=== PATIENT | female | born 1995 | race Caucasian/White ===

== ENCOUNTER 2017-06-19 06:20 | Emergency (ER) | payer SELFPAY ==
[~2017-06-19] VITALS: Ht 167.6 cm; Wt 56.7 kg
[~2017-06-19 06:20] MED LIST: AGM875T PO; AMOX250S5 PO; HYDR118S PO; HYOS0.1217 SL; MULT-608 PO; ONDA-42 SL; PARO30TA74 PO; tetracaine lollipop PO
--- OUTSIDE RECORDS SUMMARY | 2017-06-19 06:28 | XMS REPORT ---
Author Author OLIMPIA CASTRO Organization eClinicalWorks Address Unknown Phone Unavailable Care Team Providers Care Dairy Machine Operator Farmworker Name Role Phone OLIMPIA CASTRO CP Unavailable Allergies No Known Allergies Problems Problem Type Condition Code Onset Dates Condition Status Problem Depressive disorder, not elsewhere classified F32.9 Active Problem Generalized anxiety disorder F41.1 Active Problem Cellulitis of head except face L03.811 Active Problem Beta thalassemia minor D56.3 Active Medications Medication Code System Code Instructions Start Date End Date Status Dosage HydrOXYzine HCl [facility] [address]-15 25 MG Orally every 8 hrs May 22, 2016 1 tablet as needed PredniSONE [facility] [address]-54 20 MG Orally once a day May 22, 2016May 3 tablets x 2 days, 2 tabs x 2 day 1 tab x 2 days Results No Known Results Summary Purpose eClinicalWorks Submission
--- OUTSIDE RECORDS SUMMARY | 2017-06-19 06:28 | XMS REPORT ---
Author NATI Rowan [facility] eClinicalWorks Address Unknown Phone Unavailable Care Team Providers Care Weatherization Field Technician Name Role Phone NATI CORTES CP Unavailable Allergies, Adverse Reactions, Alerts Substance Reaction Event Type N.K.D.A. 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 Medications Medication Code System Code Instructions Start Date End Date Status Dosage Depo-Provera [facility] [address]-68 150 MG/ML Intramuscular 1 ml Procedures Procedure Coding System Code Date Office Visit, Est Pt., Level 3 CPT-4 27613 Sep 27, 2015 X-RAY EXAM OF HIPS CPT-4 27772 Sep 27, 2015 Vital Signs Date/Time: Sep 27, 2015 Temperature 98.0 F Weight 135 lbs Height 5'6" in BMI 21.79 Index Blood Pressure Diastolic 62 mmHg Blood Pressure Systolic 116 mmHg Cardiac Monitoring Heart Rate 78 bpm BMIPercentile 50.87 % Wt Percentile 61.49 % Results No Known Results Summary Purpose eClinicalWorks Submission
--- OUTSIDE RECORDS SUMMARY | 2017-06-19 06:28 | XMS REPORT ---
Author Author SONY WILKINSON Organization eClinicalWorks Address Unknown Phone Unavailable Care Team Providers Care Executive Pilot Name Role Phone SONY WILKINSON CP Unavailable Allergies, Adverse Reactions, Alerts Substance Reaction Event Type N.K.D.A. Info Not Available Non Drug Allergy Problems Problem Type Condition Code Onset Dates Condition Status Problem Generalized anxiety disorder F41.1 Active Problem Beta thalassemia minor D56.3 Active Problem Depressive disorder, not elsewhere classified F32.9 Active Assessment Left hip pain M25.552 Active Medications Medication Code System Code Instructions Start Date End Date Status Dosage Ibuprofen [facility] [address]-42 800 MG Orally Three times a day prn February 20, 2016 March 21, 2016 1 tablet Depo-Provera [facility] [address]-94 150 MG/ML Intramuscular 1 ml Sertraline HCl [facility] [address]-78 50 MG Orally Once a day February 15, 2016 0.5 tablet every am X 2 weeks then 1 tablet every am Procedures Procedure Coding System Code Date KENALOG 40 MG/ML (PER 10 MG) CPT-4 J3301 February 20, 2016 THER/PROPH/DIAG INJ, SC/IM CPT-4 53393 February 20, 2016 Office Visit, Est Pt., Level 3 CPT-4 81196 February 20, 2016 Vital Signs Date/Time: February 20, 2016 Temperature 99.0 F Weight 135.4 lbs Height 5'6" in BMI 21.85 Index Blood Pressure Diastolic 56 mmHg Blood Pressure Systolic 102 mmHg Cardiac Monitoring Heart Rate 80 bpm Results No Known Results Summary Purpose eClinicalWorks Submission
--- OUTSIDE RECORDS SUMMARY | 2017-06-19 06:28 | XMS REPORT ---
Author Author YUSRA PURI [facility] eClinicalWorks Address Unknown Phone Unavailable Care Team Providers Care Systems Consultant Name Role Phone YUSRA PURI Unavailable Allergies No Known Allergies Problems Problem Type Condition Code Onset Dates Condition Status Problem Beta thalassemia minor D56.3 Active Assessment Strain of flexor muscle of left hip S76.012A Active Problem Generalized anxiety disorder F41.1 Active Medications No Known Medications Procedures Procedure Coding System Code Date Office Visit, Est Pt., Level 3 CPT-4 88045 Oct 05, 2015 Vital Signs Date/Time: Oct 05, 2015 Blood Pressure Diastolic 62 mmHg Blood Pressure Systolic 112 mmHg Height 5'6" in Results No Known Results Summary Purpose eClinicalWorks Submission
--- OUTSIDE RECORDS SUMMARY | 2017-06-19 06:28 | XMS REPORT ---
Author Author OLIMPIA CASTRO Organization [facility] Address [address] [place] [address] Care Team Providers Care Section Plotter Operator Name Role Phone OLIMPIA CASTRO Unavailable PROBLEMS Type Condition ICD9-CM Code [id number] Code Onset Dates Condition Status SNOMED Code Problem Cellulitis of head except face L03.811 Active 521441407 Problem Depressive disorder, not elsewhere classified F32.9 Active 06099321 Problem Generalized anxiety disorder F41.1 Active 50013832 Problem Beta thalassemia minor D56.3 Active 391418398 ALLERGIES Substance Reaction Event Type Date Status N.K.D.A. Unknown Non Drug Allergy Sep, Unknown SOCIAL HISTORY No smoking Hx information available PLAN OF CARE Activity Details Follow Up prn Reason: VITAL SIGNS Height 5'6" in 2016-10-15 Weight 121.4 lbs 2016-10-15 Temperature 98.7 degrees Fahrenheit 2016-10-15 Heart Rate 76 bpm 2016-10-15 Respiratory Rate 18 2016-10-15 BMI 19.59 kg/m2 2016-10-15 Blood pressure systolic 110 mmHg 2016-10-15 Blood pressure diastolic 76 mmHg 2016-10-15 MEDICATIONS Medication Instructions Dosage Frequency Start Date End Date Duration Status Depo-Provera 150 MG/ML 1 ml Active Azithromycin 250 MG Orally Once a day 2 tablets on the first day, then 1 tablet daily for 4 days 24h Sep, Sep, 5 day(s) Active Depo-Provera 150 MG/ML as directed Aug, Active RESULTS Name Result Date Reference Range STREP A (IN HOUSE) 2016-10-15 STREP A negative Control + Lot # [id number] Exp date may 13 PROCEDURES Procedure Date Ordered Related Diagnosis Body Site STREP A ASSAY W/OPTIC Oct 15, 2016 Office Visit, Est Pt., Level 3 Oct 15, 2016 IMMUNIZATIONS No Known Immunizations
--- OUTSIDE RECORDS SUMMARY | 2017-06-19 06:28 | XMS REPORT ---
Author Author JUSTIN BORREGO Organization eClinicalWorks Address Unknown Phone Unavailable Care Team Providers Care Medical Device Sales Representative Name Role Phone JUSTIN BORREGO Unavailable Allergies, Adverse Reactions, Alerts Substance Reaction Event Type N.K.D.A. Info Not Available Non Drug Allergy Problems Problem Type Condition Code Onset Dates Condition Status Problem Beta thalassemia minor D56.3 Active Assessment Generalized anxiety disorder F41.1 Active Problem Generalized anxiety disorder F41.1 Active Medications Medication Code System Code Instructions Start Date End Date Status Dosage Naprosyn [facility] [address]-40 250 MG Orally Twice a day Oct 06, 2015 Oct 20, 2015 1 tablet Depo-Provera [facility] [address]-59 150 MG/ML Intramuscular 1 ml Effexor XR [facility] [address]-84 75 MG Orally Once a day Oct 10, 2015 1 capsule with food Procedures Procedure Coding System Code Date Psych diagnostic evaluation w/medical services, established patient CPT-4 25362 Oct 10, 2015 Vital Signs Date/Time: Oct 10, 2015 Cardiac Monitoring Heart Rate 72 bpm Weight 132.0 lbs Height 5'6" in BMI 21.30 Index Blood Pressure Diastolic 60 mmHg Blood Pressure Systolic 100 mmHg Results No Known Results Summary Purpose eClinicalWorks Submission
--- OUTSIDE RECORDS SUMMARY | 2017-06-19 06:28 | XMS REPORT ---
Author Author HAILEY BANERJEE [facility] eClinicalWorks Address Unknown Phone Unavailable Care Team Providers Care Roving Inspector Name Role Phone HAILEY BANERJEE CP Unavailable Allergies No Known Allergies Problems Problem Type Condition Code Onset Dates Condition Status Problem Generalized anxiety disorder F41.1 Active Problem Beta thalassemia minor D56.3 Active Problem Depressive disorder, not elsewhere classified F32.9 Active Assessment Encounter for Depo-Provera contraception Z30.42 Active Medications No Known Medications Procedures Procedure Coding System Code Date DEPO PROVERA (150 MG/ML) CPT-4 J1050 February 16, 2016 THER/PROPH/DIAG INJ, SC/IM CPT-4 92298 February 16, 2016 URINE TEST CPT-4 88297 February 16, 2016 Vital Signs Date/Time: February 16, 2016 Cardiac Monitoring Heart Rate 98 bpm Temperature 97.8 F Height 5'6" in Blood Pressure Diastolic 68 mmHg Blood Pressure Systolic 108 mmHg Results No Known Results Summary Purpose eClinicalWorks Submission
--- OUTSIDE RECORDS SUMMARY | 2017-06-19 06:29 | XMS REPORT ---
Author Author HAILEY BANERJEE [facility] eClinicalWorks Address Unknown Phone Unavailable Care Team Providers Care Electronic Heat Seal Operator Name Role Phone HAILEY BANERJEE Unavailable Allergies No Known Allergies Problems Problem Type Condition Code Onset Dates Condition Status Problem Depressive disorder, not elsewhere classified F32.9 Active Problem Generalized anxiety disorder F41.1 Active Problem Cellulitis of head except face L03.811 Active Problem Beta thalassemia minor D56.3 Active Medications No Known Medications Results No Known Results Summary Purpose eClinicalWorks Submission
--- OUTSIDE RECORDS SUMMARY | 2017-06-19 06:29 | XMS REPORT ---
Author Author JUSTIN BORREGO [facility] eClinicalWorks Address Unknown Phone Unavailable Care Team Providers Care Parking Meter Installer Name Role Phone JUSTIN BORREGO Unavailable Allergies, Adverse Reactions, Alerts Substance Reaction Event Type N.K.D.A. Info Not Available Non Drug Allergy Problems Problem Type Condition Code Onset Dates Condition Status Problem Beta thalassemia minor D56.3 Active Assessment Generalized anxiety disorder F41.1 Active Problem Generalized anxiety disorder F41.1 Active Medications Medication Code System Code Instructions Start Date End Date Status Dosage Depo-Provera [facility] [address]-29 150 MG/ML Intramuscular 1 ml Cymbalta [facility] [address]-59 20 MG Orally Once a day Oct 23, 2015 1 capsule Procedures Procedure Coding System Code Date Office Visit, Est Pt., Level 4 CPT-4 62117 Oct 31, 2015 Vital Signs Date/Time: Oct 31, 2015 Cardiac Monitoring Heart Rate 84 bpm Weight 130.9 lbs Height 5'6" in BMI 21.13 Index Blood Pressure Diastolic 58 mmHg Blood Pressure Systolic 95 mmHg Results No Known Results Summary Purpose eClinicalWorks Submission
--- OUTSIDE RECORDS SUMMARY | 2017-06-19 06:29 | XMS REPORT ---
Author Author BRENNAN SMITH [facility] Address [address] [place] [address] Care Team Providers Care Machine Tool Rebuilder Name Role Phone BRENNAN SMITH Unavailable PROBLEMS Type Condition ICD9-CM Code [id number] Code Onset Dates Condition Status SNOMED Code Problem Cellulitis of head except face L03.811 Active 435535627 Problem Depressive disorder, not elsewhere classified F32.9 Active 47237636 Problem Generalized anxiety disorder F41.1 Active 57010960 Problem Beta thalassemia minor D56.3 Active 044157470 ALLERGIES No Known Allergies SOCIAL HISTORY No smoking Hx information available PLAN OF CARE VITAL SIGNS MEDICATIONS Medication Instructions Dosage Frequency Start Date End Date Duration Status Depo-Provera 150 MG/ML as directed Aug, Active RESULTS No Results PROCEDURES Procedure Date Ordered Related Diagnosis Body Site DEPO PROVERA (150 MG/ML) 2016 THER/PROPH/DIAG INJ, SC/IM 2016 IMMUNIZATIONS Vaccine Route Administration Date Status DEPO PROVERA (150 MG/ML) IM Intramuscular 2016 Administered
--- OUTSIDE RECORDS SUMMARY | 2017-06-19 06:29 | XMS REPORT ---
Author Author HAILEY BANERJEE eClinicalWorks Address Unknown Phone Unavailable Care Team Providers Care Emergency Management System Director Name Role Phone HAILEY BANERJEE CP Unavailable Allergies, Adverse Reactions, Alerts Substance Reaction Event Type N.K.D.A. 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 Problem Generalized anxiety disorder F41.1 Active Assessment Thalassemia, unspecified type D56.9 Active Medications Medication Code System Code Instructions Start Date End Date Status Dosage Depo-Provera [facility] [address]-07 150 MG/ML Intramuscular 1 ml Procedures Procedure Coding System Code Date ASSAY OF FREE THYROXINE CPT-4 21524 Sep 07, 2015 MANUAL CELL COUNT, EACH CPT-4 32103 Sep 07, 2015 ASSAY THYROID STIM HORMONE CPT-4 34928 Sep 07, 2015 VENIPUNCT, ROUTINE* CPT-4 95537 Sep 07, 2015 HEMOGLOBIN CHROMOTOGRAPHY CPT-4 28209 Sep 07, 2015 BLOOD SMEAR INTERPRETATION CPT-4 18115 Sep 07, 2015 Office Visit, Est Pt., Level 3 CPT-4 24173 Sep 07, 2015 COMPREHEN METABOLIC PANEL CPT-4 22973 Sep 07, 2015 Vital Signs Date/Time: Sep 07, 2015 Temperature 97.9 F Weight 133.6 lbs Height 5'6" in BMI 21.56 Index Blood Pressure Diastolic 70 mmHg Blood Pressure Systolic 118 mmHg Cardiac Monitoring Heart Rate 80 bpm BMIPercentile 48.09 % Wt Percentile 59.23 % Results Name Result Date Reference Range Unit Abnormality Flag ROUTINE VENIPUNCTURE Summary Purpose eClinicalWorks Submission
--- OUTSIDE RECORDS SUMMARY | 2017-06-19 06:29 | XMS REPORT ---
Author IBETH Chaidez [facility] eClinicalWorks Address Unknown Phone Unavailable Care Team Providers Care Ict Project Manager Name Role Phone IBETH DILL CP Unavailable Allergies No Known Allergies Problems Problem Type Condition Code Onset Dates Condition Status Problem Generalized anxiety disorder F41.1 Active Problem Beta thalassemia minor D56.3 Active Problem Depressive disorder, not elsewhere classified F32.9 Active Assessment Encounter for Depo-Provera contraception Z30.42 Active Medications No Known Medications Procedures Procedure Coding System Code Date DEPO PROVERA (150 MG/ML) CPT-4 J1050 Nov 20, 2015 THER/PROPH/DIAG INJ, SC/IM CPT-4 30542 Nov 20, 2015 URINE TEST CPT-4 50246 Nov 20, 2015 Results Name Result Date Reference Range Unit Abnormality Flag TEST, URINE (IN HOUSE) ----RESULTS neg [id number] ----Lot # [id number] ----Control + [id number] ----Exp date [id number] Summary Purpose eClinicalWorks Submission
--- OUTSIDE RECORDS SUMMARY | 2017-06-19 06:29 | XMS REPORT ---
Author BRENNAN Hampton [facility] eClinicalWorks Address Unknown Phone Unavailable Care Team Providers Care Color Mixer Name Role Phone BRENNAN SMITH CP Unavailable Allergies, Adverse Reactions, Alerts Substance Reaction Event Type N.K.D.A. Info Not Available Non Drug Allergy Problems Problem Type Condition Code Onset Dates Condition Status Problem Depressive disorder, not elsewhere classified F32.9 Active Problem Generalized anxiety disorder F41.1 Active Problem Cellulitis of head except face L03.811 Active Problem Beta thalassemia minor D56.3 Active Assessment Encounter for initial prescription of Nexplanon Z30.017 Active Medications Medication Code System Code Instructions Start Date End Date Status Dosage Depo-Provera [facility] [address]-76 150 MG/ML Intramuscular 2016 as directed Procedures Procedure Coding System Code Date Office Visit, Est Pt., Level 3 CPT-4 27062 Sep 23, 2016 Vital Signs Date/Time: Sep 23, 2016 Cardiac Monitoring Heart Rate 100 bpm Weight 125.6 lbs Height 5'6" in BMI 20.27 Index Blood Pressure Diastolic 68 mmHg Blood Pressure Systolic 112 mmHg Results No Known Results Summary Purpose eClinicalWorks Submission
--- OUTSIDE RECORDS SUMMARY | 2017-06-19 06:29 | XMS REPORT ---
Author Author JUSTIN BORREGO [facility] eClinicalWorks Address Unknown Phone Unavailable Care Team Providers Care Cra Officer Name Role Phone JUSTIN BORREGO Unavailable Allergies No Known Allergies Problems Problem Type Condition Code Onset Dates Condition Status Problem Generalized anxiety disorder F41.1 Active Problem Beta thalassemia minor D56.3 Active Problem Depressive disorder, not elsewhere classified F32.9 Active Medications Medication Code System Code Instructions Start Date End Date Status Dosage Effexor XR [facility] [address]-29 75 MG Orally Once a day Oct 10, 2015 1 capsule with food Results No Known Results Summary Purpose eClinicalWorks Submission
--- OUTSIDE RECORDS SUMMARY | 2017-06-19 06:29 | XMS REPORT ---
Author IBETH Chaidez [facility] eClinicalWorks Address Unknown Phone Unavailable Care Team Providers Care Clinical Systems Analyst Name Role Phone IBETH DILL CP Unavailable Allergies No Known Allergies Problems Problem Type Condition Code Onset Dates Condition Status Assessment Encounter for immunization Z23 Active Medications No Known Medications Procedures Procedure Coding System Code Date SINGLE IMMUNIZATION ADMIN CPT-4 90809 Aug 07, 2015 FLUARIX QUAD (3 & UP)-GSK-2014 CPT-4 11159 Aug 07, 2015 Results No Known Results Immunizations Vaccine Administration Date FLUARIX QUAD (3 & UP)-GSK-2014Aug 07, 2015 Summary Purpose eClinicalWorks Submission
--- OUTSIDE RECORDS SUMMARY | 2017-06-19 06:29 | XMS REPORT ---
Author Author JUSTIN BORREGO Organization eClinicalWorks Address Unknown Phone Unavailable Care Team Providers Care Parachute Mender Name Role Phone JUSTIN BORREGO Unavailable Allergies No Known Allergies Problems Problem Type Condition Code Onset Dates Condition Status Problem Beta thalassemia minor D56.3 Active Problem Generalized anxiety disorder F41.1 Active Medications No Known Medications Results No Known Results Summary Purpose eClinicalWorks Submission
--- OUTSIDE RECORDS SUMMARY | 2017-06-19 06:29 | XMS REPORT ---
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 Unknown Non Drug Allergy Jun, Unknown SOCIAL HISTORY No smoking Hx information available PLAN OF CARE VITAL SIGNS Height 5'6" in 2016-06-28 Weight 132.7 lbs 2016-06-28 Heart Rate 84 bpm 2016-06-28 Respiratory Rate 18 2016-06-28 BMI 21.42 kg/m2 2016-06-28 Blood pressure systolic 130 mmHg 2016-06-28 Blood pressure diastolic 56 mmHg 2016-06-28 MEDICATIONS Medication Instructions Dosage Frequency Start Date End Date Duration Status Depo-Provera 150 MG/ML 1 ml Active Tramadol HCl 50 mg Orally every 6 hrs 1 tablet as needed 6h Jun, Active RESULTS Name Result Date Reference Range Xray : Spine, Thoracic 2 views (IN HOUSE) 2016-06-28 Xray : Spine, Lumbar 2-3 views (IN HOUSE) 2016-06-28 PROCEDURES Procedure Date Ordered Related Diagnosis Body Site X-RAY EXAM OF LOWER SPINE Jun 28, 2016 X-RAY EXAM OF THORACIC SPINE Jun 28, 2016 Office Visit, Est Pt., Level 3 Jun 28, 2016 IMMUNIZATIONS No Known Immunizations
--- OUTSIDE RECORDS SUMMARY | 2017-06-19 06:29 | XMS REPORT ---
Author Author JUSTIN BORREGO [facility] eClinicalWorks Address Unknown Phone Unavailable Care Team Providers Care Outsole Paraffiner Name Role Phone JUSTIN BORREGO Unavailable Allergies No Known Allergies Problems Problem Type Condition Code Onset Dates Condition Status Problem Beta thalassemia minor D56.3 Active Assessment Generalized anxiety disorder F41.1 Active Problem Generalized anxiety disorder F41.1 Active Medications Medication Code System Code Instructions Start Date End Date Status Dosage Depo-Provera [facility] [address]-93 150 MG/ML Intramuscular 1 ml Cymbalta [facility] [address]-45 20 MG Orally Once a day Oct 23, 2015 1 capsule Procedures Procedure Coding System Code Date VENIPUNCT, ROUTINE* CPT-4 13491 Oct 23, 2015 Office Visit, Est Pt., Level 5 CPT-4 66559 Oct 23, 2015 COMPLETE CBC W/AUTO DIFF WBC CPT-4 56342 Oct 23, 2015 Vital Signs Date/Time: Oct 23, 2015 Cardiac Monitoring Heart Rate 78 bpm Weight 129 lbs Height 5'6" in BMI 20.82 Index Blood Pressure Diastolic 60 mmHg Blood Pressure Systolic 110 mmHg Results Name Result Date Reference Range Unit Abnormality Flag ROUTINE VENIPUNCTURE Summary Purpose eClinicalWorks Submission
--- OUTSIDE RECORDS SUMMARY | 2017-06-19 06:29 | XMS REPORT ---
Author Author NIKKO ARMAS Organization eClinicalWorks Address Unknown Phone Unavailable Care Team Providers Care Under Cutter Name Role Phone NIKKO ARMAS CP Unavailable Allergies, Adverse Reactions, Alerts Substance Reaction Event Type N.K.D.A. Info Not Available Non Drug Allergy Problems Problem Type Condition Code Onset Dates Condition Status Problem Generalized anxiety disorder F41.1 Active Problem Beta thalassemia minor D56.3 Active Problem Depressive disorder, not elsewhere classified F32.9 Active Assessment Depressive disorder, not elsewhere classified F32.9 Active Assessment Generalized anxiety disorder F41.1 Active Medications Medication Code System Code Instructions Start Date End Date Status Dosage Sertraline HCl [facility] [address]-58 50 MG Orally Once a day February 15, 2016 0.5 tablet every am X 2 weeks then 1 tablet every am Depo-Provera [facility] [address]-30 150 MG/ML Intramuscular 1 ml Procedures Procedure Coding System Code Date MH Office Visit, Est Pt., Level 4 CPT-4 47711 February 15, 2016 Vital Signs Date/Time: February 15, 2016 Cardiac Monitoring Heart Rate 86 bpm Weight 134.5 lbs Height 5'6" in BMI 21.71 Index Blood Pressure Diastolic 70 mmHg Blood Pressure Systolic 118 mmHg Results No Known Results Summary Purpose eClinicalWorks Submission
--- OUTSIDE RECORDS SUMMARY | 2017-06-19 06:29 | XMS REPORT ---
Author Author LAMBERT MENDEZ [facility] eClinicalWorks Address Unknown Phone Unavailable Care Team Providers Care Electronic Train Control Technician Name Role Phone LAMBERT MENDEZ CP Unavailable Allergies, Adverse Reactions, Alerts Substance Reaction Event Type N.K.D.A. Info Not Available Non Drug Allergy Problems Problem Type Condition Code Onset Dates Condition Status Problem Generalized anxiety disorder F41.1 Active Problem Beta thalassemia minor D56.3 Active Problem Depressive disorder, not elsewhere classified F32.9 Active Assessment Psoriasis L40.9 Active Medications Medication Code System Code Instructions Start Date End Date Status Dosage Depo-Provera [facility] [address]-18 150 MG/ML Intramuscular 1 ml Clobetasol Propionate [facility] [address]-48 0.05 % Externally Twice a day as needed February 01, 2016 1 application to affected area Procedures Procedure Coding System Code Date Office Visit, Est Pt., Level 3 CPT-4 81234 February 01, 2016 Vital Signs Date/Time: February 01, 2016 Temperature 98.3 F Weight 133.6 lbs Height 5'6" in BMI 21.56 Index Blood Pressure Diastolic 60 mmHg Blood Pressure Systolic 110 mmHg Cardiac Monitoring Heart Rate 92 bpm Results No Known Results Summary Purpose eClinicalWorks Submission
--- OUTSIDE RECORDS SUMMARY | 2017-06-19 06:29 | XMS REPORT ---
Author Author HEMA GOODSON [facility] eClinicalWorks Address Unknown Phone Unavailable Care Team Providers Care Home Health Caregiver Name Role Phone HEMA GOODSON Unavailable Allergies No Known Allergies Problems Problem Type Condition Code Onset Dates Condition Status Problem Generalized anxiety disorder F41.1 Active Problem Beta thalassemia minor D56.3 Active Problem Depressive disorder, not elsewhere classified F32.9 Active Assessment Generalized anxiety disorder F41.1 Active Assessment Depressive disorder, not elsewhere classified F32.9 Active Medications No Known Medications Procedures Procedure Coding System Code Date Psych diagnostic evaluation, established patient CPT-4 73095 Nov 13, 2015 Results No Known Results Summary Purpose eClinicalWorks Submission
--- OUTSIDE RECORDS SUMMARY | 2017-06-19 06:30 | XMS REPORT ---
Author IBETH Chaidez [facility] eClinicalWorks Address Unknown Phone Unavailable Care Team Providers Care Software Deployment Engineer Name Role Phone IBETH DILL CP Unavailable Allergies, Adverse Reactions, Alerts Substance Reaction Event Type N.K.D.A. Info Not Available Non Drug Allergy Problems Problem Type Condition Code Onset Dates Condition Status Assessment Acute cystitis with hematuria N30.01 Active Medications Medication Code System Code Instructions Start Date End Date Status Dosage Bactrim DS [facility] [address]-13 800-160 MG Orally 2 times a day Jul 31, 2015 Aug 05, 2015 1 tablet Depo-Provera [facility] [address]-88 150 MG/ML Intramuscular 1 ml Procedures Procedure Coding System Code Date URINE CULTURE/COLONY COUNT CPT-4 32043 Jul 31, 2015 Office Visit, Est Pt., Level 3 CPT-4 86496 Jul 31, 2015 URINALYSIS, AUTO, W/O SCOPE CPT-4 87531 Jul 31, 2015 Vital Signs Date/Time: Jul 31, 2015 Temperature 98.5 F Weight 138.8 lbs Height 5'6" in BMI 22.40 Index Blood Pressure Diastolic 68 mmHg Blood Pressure Systolic 122 mmHg Cardiac Monitoring Heart Rate 84 bpm BMIPercentile 58.03 % Wt Percentile 67.47 % Results Name Result Date Reference Range Unit Abnormality Flag UA W/CULTURE IF INDICATED (IN HOUSE) Summary Purpose eClinicalWorks Submission
--- OUTSIDE RECORDS SUMMARY | 2017-06-19 06:30 | XMS REPORT ---
Author Author HAILEY BANERJEE [facility] [place] eClinicalWorks Address Unknown Phone Unavailable Care Team Providers Care Outpatient Services Director Name Role Phone HAILEY BANERJEE Unavailable Allergies No Known Allergies Problems Problem Type Condition Code Onset Dates Condition Status Assessment Encounter for Depo-Provera contraception Z30.42 Active Medications No Known Medications Procedures Procedure Coding System Code Date DEPO PROVERA (150 MG/ML) CPT-4 J1050 Aug 31, 2015 THER/PROPH/DIAG INJ, SC/IM CPT-4 94017 Aug 31, 2015 URINE TEST CPT-4 66318 Aug 31, 2015 Results No Known Results Summary Purpose eClinicalWorks Submission
--- OUTSIDE RECORDS SUMMARY | 2017-06-19 06:30 | XMS REPORT ---
Author Author TELLO IBARRA Organization eClinicalWorks Address Unknown Phone Unavailable Care Team Providers Care Machining Supervisor Name Role Phone TELLO IBARRA CP Unavailable Allergies, Adverse Reactions, Alerts Substance Reaction Event Type N.K.D.A. Info Not Available Non Drug Allergy Problems Problem Type Condition Code Onset Dates Condition Status Problem Beta thalassemia minor D56.3 Active Assessment Chronic left hip pain M25.552 Active Problem Generalized anxiety disorder F41.1 Active Medications Medication Code System Code Instructions Start Date End Date Status Dosage Depo-Provera [facility] [address]-33 150 MG/ML Intramuscular 1 ml Naprosyn [facility] [address]-13 250 MG Orally Twice a day Oct 06, 2015 Oct 20, 2015 1 tablet Procedures Procedure Coding System Code Date THER/PROPH/DIAG INJ, SC/IM CPT-4 03818 Oct 06, 2015 Office Visit, Est Pt., Level 3 CPT-4 52876 Oct 06, 2015 DEPO MEDROL 40 MG/ML CPT-4 J1030 Oct 06, 2015 Vital Signs Date/Time: Oct 06, 2015 Temperature 98.2 F Weight 131.4 lbs Height 5'6" in BMI 21.21 Index Blood Pressure Diastolic 68 mmHg Blood Pressure Systolic 120 mmHg Cardiac Monitoring Heart Rate 68 bpm Results No Known Results Summary Purpose eClinicalWorks Submission
--- OUTSIDE RECORDS SUMMARY | 2017-06-19 06:30 | XMS REPORT | Continuity of Care Document ---
Demographics Preferred Language Unknown Marital Status Unknown Voodoo Affiliation Unknown Race Unknown Ethnic Group Unknown Author Author [facility] Address Unknown Phone Unavailable Allergies Active Description Code Type Severity Reaction Onset Reported/Identified Relationship to Patient Clinical Status Yes No Known Drug Allergies [id number] Drug Allergy Unknown N/ A 05/28/2011 Medications Problems Date Dx Coded Attending Type Code Diagnosis Diagnosed By 05/28/2011 Ot 474.00 06/02/2011 Ot 998.11 12/11/2014 ELIZABETH LOVE MD, FACC, FACP CCDS Ot 785.1 12/11/2014 ELIZABETH LOVE MD, FACC, FACP CCDS Ot 786.59 12/11/2014 Ot 785.1 12/11/2014 Ot 786.59 12/11/2014 BATSHEVA BLANK MD Ot 787.01 12/11/2014 BATSHEVA BLANK MD Ot 787.91 12/11/2014 BATSHEVA BLANK MD Ot 789.00 06/15/2015 Ot 474.00 06/15/2015 Ot V72.63 06/15/2015 ELIZABETH LOVE MD, FACC, FACP CCDS Ot 785.1 06/15/2015 KATE LE FACC, ELIZABETH VOGEL CCDS Ot 786.59 06/15/2015 Ot 785.1 06/15/2015 Ot 786.59 09/04/2015 Ot 474.00 09/04/2015 Ot V72.63 Procedures Results Encounters ACCT No. Visit Date/Time Discharge Status Pt. Type Provider Facility Loc./Unit Complaint [id number] 09/30/2012 15:06:55 RECURRING [id number] 12/11/2014 03:49:00 2014 05:21:00 DIS Emergency BATSHEVA BLANK MD [facility] ER [id number] 06/16/2014 08:33:00 2013 23:59:59 CLS Outpatient ELIZABETH LOVE MD, FACC, FACP CCDS [facility] CARD [id number] 06/15/2015 15:07:00 Document Registration [id number] 07/12/2014 12:58:00 Document Registration [id number] 06/02/2011 21:08:00 Document Registration [id number] 05/27/2011 08:48:00 Document Registration
[2017-06-19] MEDS ORDERED: DEXT10TA24 (06:34)
[2017-06-19] MEDS ORDERED: AMIT50TA3 (06:34)
[2017-06-19] MEDS ORDERED: ONDANSETRON 4 MG (ZOFRAN) ORAL DISSOLVE TAB PO ONE (07:15)
--- NOTE | 2017-06-19 07:15 | ED Head Injury ---
General Chief Complaint: Head/Cervical Problems Stated Complaint: HIT HEAD 3 DAYS AGO Nursing Triage Note: C/O HEADACHE X3 DAYS, VOMITTING LAST NIGHT, DEHYDRATION. Source: patient, family Exam Limitations: no limitations History of Present Illness Time seen by provider: 07:10 Initial Comments This 21-year-old female presents after sustaining closed occipital trauma 3 days ago when in frustration she slammed her head into her headboard at home. The patient was frustrated because she was suffering from insomnia. The patient was seen at [facility] yesterday. She had had no nausea up to that point. The patient had no other hard neurologic findings until that point. The patient was given amitriptyline for sleep. After taking the amitriptyline the patient had nausea and vomiting throughout the night. Patient denies associated fever, chills, photophobia, hematemesis, black or tarry stools, lateralizing or localizing neurologic complaints, or similar episode in the past. At this time the patient is having nausea and a mild occipital headache where she struck her head 3 days ago. Pertinent past medical history includes a Depo-Medrol for control which the patient has taken a compliant fashion. She denies possibility of . Allergies and Home Medications Allergies Coded Allergies: No Known Drug Allergies (Unverified , 05/28/11) Home Medications Amitriptyline HCl 50 Mg Tablet, (Reported) Dextroamphetamine/Amphetamine 10 Mg Tablet, (Reported) Constitutional: see HPI, No chills, dizziness, No fever Eyes: Denies Photophobia, Denies Vision Changes Ears, Nose, Mouth, Throat: denies ear pain, denies epistaxis Respiratory: No cough Cardiovascular: No chest pain Gastrointestinal: No abdominal pain, nausea, vomiting Genitourinary: No dysuria, No frequency : No Musculoskeletal: No back pain Skin: No rash Psychiatric/Neurological: See HPI, Cognitive Dysfunction (the patient feels like she is in a fog.), Headache, Denies Tingling Endocrine: No Symptoms Reported, Denies Intolerance to Cold Hematologic/Lymphatic: Denies No Symptoms Reported Past Mmwaiwi-Ufglfi-Yrnygo Hx Patient Social History Alcohol Use: Denies Use Recreational Drug Use: No Smoking Status: Never a Smoker 2nd Hand Smoke Exposure: No Recent Foreign Travel: No Contact w/Someone Who Travel: No Recent Infectious Disease Expo: No Recent Hopitalizations: No Immunizations Up To Date Tetanus Booster (TDap): Less than 5yrs PED Vaccines UTD: Yes Seasonal Allergies Seasonal Allergies: No Surgeries History of Surgeries: Yes (Wisdome teeth) Surgeries: Tonsillectomy Respiratory History of Respiratory Disorde: No Cardiovascular History of Cardiac Disorders: No Neurological History of Neurological Disord: No Reproductive System : No Hx Reproductive Disorders: No Sexually Transmitted Disease: No Female Reproductive Disorders: Endometriosis Genitourinary History of Genitourinary Disor: No Gastrointestinal History of Gastrointestinal Di: No Musculoskeletal History of Musculoskeletal Dis: No Endocrine History of Endocrine Disorders: No HEENT History of HEENT Disorders: No Cancer History of Cancer: No Psychosocial History of Psychiatric Problem: No Integumentary History of Skin or Integumenta: No Blood Transfusions History of Blood Disorders: Yes (thalasemia) Reviewed Nursing Assessment Reviewed/Agree w Nursing PMH: Yes Family Medical History Significant Family History: No Pertinent Family Hx Physical Exam Vital Signs Vital Sign - Last 12Hours 06/19/17 06:35 Temp 97.7 Pulse 119 Resp 18 B/P (MAP) 118/95 Pulse Ox 100 O2 Delivery Room Air Capillary Refill : Less Than 3 Seconds General Appearance: No WD/WN, No no apparent distress HEENT: No PERRL/EOMI, No normal ENT inspection, other (there is a mild tenderness to palpation over the right occiput. There is no significant cephalohematoma.) Neck: No non-tender, No full range of motion Cardiovascular: normal peripheral pulses, regular rate, rhythm, no edema Respiratory: chest non-tender, lungs clear Gastrointestinal: normal bowel sounds, non tender, soft Back: normal inspection Extremities: normal range of motion, non-tender Psychiatric: alert, oriented x 3 Crainal Nerves: normal hearing, normal speech, PERRL Coordination/Gait: negative Romberg's sign, abnormal gait Motor/Sensory: no motor deficit, no sensory deficit, no pronator drift Skin: normal color, warm/dry Chato Coma Score Best Eye Response: (4) Open Spontaneously Best Verbal Response: (5) Oriented Best Motor Response: (6) Obeys Commands [place] Total: 15 Progress/Results/Core Measures Results/Orders My Orders Orders - CARL FIGUEROA MD Ct Head/Cervical Spine Wo (06/19/17 07:08) Ondansetron Oral Dissolve Tab (Zofran (06/19/17 07:15) Medications Given in ED Current Medications Medications Dose Ordered Sig/Juan Route Start Time Stop Time Status Last Admin Dose Admin Ondansetron HCl 4 mg ONCE ONCE PO 06/19/17 07:15 06/19/17 07:16 DC 06/19/17 07:26 4 MG Vital Signs/I&O Vital Sign - Last 12Hours 06/19/17 06:35 Temp 97.7 Pulse 119 Resp 18 B/P (MAP) 118/95 Pulse Ox 100 O2 Delivery Room Air Blood Pressure Mean: 103 Progress Note : Time: 08:[address] of the head was unremarkable. The patient was significantly improved with the Zofran. I recommended the patient stop the try cyclic for now. I recommended a close follow-up with her caregiver for further evaluation of head injury if needed. I prescribed ondansetron for any residual nausea and recommended rest over the weekend for her closed head injury. ECG Initial ECG Impression Date: Jun 19, 2017 Departure Impression Impression: Primary Impression: Injury of head and neck Qualified Codes: S09.90XD - Unspecified injury of head, subsequent encounter; S19.9XXD - Unspecified injury of neck, subsequent encounter Disposition: 01 HOME, SELF-CARE Condition: Improved Departure-Patient Inst. Decision time for Depature: 08:19 Referrals: [facility] (PCP) Primary Care Physician NATI CORTES (Family) Primary Care Physician Patient Instructions: Minor Head Injury (DC) Add. Discharge Instructions: Follow closely with your caregiver on Friday if you have any residual symptoms consistent with a head injury. Zofran for nausea. Rest this weekend. Return if any problems or questions over the weekend. All discharge instructions reviewed with patient and/or family. Voiced understanding. CARL FIGUEROA MD Jun 19, 2017 07:15
--- NOTE | 2017-06-19 07:34 | Diagnostic Imaging Report ---
PROCEDURE: CT head and CT cervical spine without contrast. TECHNIQUE: Multiple contiguous axial images were obtained through the brain and cervical spine without the use of intravenous contrast. Sagittal and coronal reformations through the cervical spine were then performed. INDICATION: Head and neck pain after fall 3 days ago. COMPARISON: None available. FINDINGS: Head: No hyperdense mass or space-occupying mass. No hydrocephalus or midline shift. No evidence of territorial infarct. Basilar cisterns are patent. No focal scalp swelling. No skull fracture. Trace mucosal thickening in left maxillary sinus. Other paranasal sinuses and the mastoid air cells are clear. Cervical spine: No acute fracture or traumatic malalignment. Intervertebral disc spaces are normal. Airway is patent. No cervical lymphadenopathy. Visualized thyroid is normal. IMPRESSION: 1. No acute intracranial process. 2. No acute fracture or traumatic malalignment of the cervical spine. Dictated by: Dictated on workstation # [id number]
[2017-06-19 08:25] VITALS: BP 116/90
== END 2017-06-19 08:25 | disposition home or self-care (01) ==
LOC: EDUNIT# 06:20 → ER 06:24
DX: S09.90XA Unspecified injury of head, initial encounter (principal); S19.9XXA Unspecified injury of neck, initial encounter; R11.2 Nausea with vomiting, unspecified; W22.03XA Walked into furniture, initial encounter; Y92.013 Bedroom of single-family (private) house as the place of occurrence of the external cause; Y99.8 Other external cause status
CPT/HCPCS: 70450; 72125; 99282